=== PATIENT | female | born 1965 | race Caucasian/White ===

== ENCOUNTER → 2021-06-10 | Outpatient (CLI) | payer MEDICARE ==
[2021-06-10 16:39] LABS: BUN/CREATININE RATIO 20 (0-10)
== END ==
LOC: LAB 14:10
PROVIDERS: Family Medicine
DX: E11.40 Type 2 diabetes mellitus with diabetic neuropathy, unspecified (principal)
CPT/HCPCS: 36415; 80053; 83036

== ENCOUNTER → 2021-12-24 | Day surgery (SDC) | payer MEDICARE ==
[~2021-12-24] MED LIST: ABILIFY20 MG PO; ACCOLATE20 MG PO; ACYCLOVIR400 MG PO; ALBUTEROL2.5 MG/3 M INH; BENTYL 20MG TAB20 MG PO; BENZTROPINE MESY1 MG PO; BRIMONIDINE 0.110 ML EYEBOTH; CELEXA40 MG PO; CLEARLAX119 GM PO; CREON DR 36,001 EACH PO; CRESTOR10 MG PO; DULERA 200 MCG8.8 GM INH; HYDROCHLOROTHIA25 MG PO; LAMICTAL TAB 1100 MG PO; LIDOCAINE PO; LINZESS145 MCG PO; LOPRESSOR50 MG PO; LYRICA100 MG PO; MOMETASONE FURO60 ML; MYCOSTATIN100000 UTS PO; NOVOLOG MI100 UNIT/1 SC; PREVACID30 MG PO; RYBELSUS7 MG PO; SENNA S TABLET1 EACH PO; TYLENOL EXTRA500 M1 PO; VISTARIL 25 MG25 MG PO; ZANAFLEX4 M1 PO
== END | disposition home or self-care (01) ==
LOC: OR 07:12
PROVIDERS: Internal Medicine Gastroenterology
PROC: 0DBN8ZZ Excision of Sigmoid Colon, Via Natural or Artificial Opening Endoscopic (ICD-10-PCS; 2021-12-24)
PROC: 0DBP8ZZ Excision of Rectum, Via Natural or Artificial Opening Endoscopic (ICD-10-PCS; 2021-12-24)
PROC: 0DBM8ZZ Excision of Descending Colon, Via Natural or Artificial Opening Endoscopic (ICD-10-PCS; 2021-12-24)
PROC: 0DB38ZX Excision of Lower Esophagus, Via Natural or Artificial Opening Endoscopic, Diagnostic (ICD-10-PCS; 2021-12-24)
PROC: 0DB78ZX Excision of Stomach, Pylorus, Via Natural or Artificial Opening Endoscopic, Diagnostic (ICD-10-PCS; 2021-12-24)
PROC: 0DB68ZX Excision of Stomach, Via Natural or Artificial Opening Endoscopic, Diagnostic (ICD-10-PCS; 2021-12-24)
PROC: 0DBH8ZZ Excision of Cecum, Via Natural or Artificial Opening Endoscopic (ICD-10-PCS; principal; 2021-12-24 08:15)
PROC: 0DBL8ZZ Excision of Transverse Colon, Via Natural or Artificial Opening Endoscopic (ICD-10-PCS; 2021-12-24 08:15)
DX: Z12.11 Encounter for screening for malignant neoplasm of colon (principal); Z20.822 Contact with and (suspected) exposure to COVID-19; D12.0 Benign neoplasm of cecum; D12.3 Benign neoplasm of transverse colon; D12.4 Benign neoplasm of descending colon; D12.5 Benign neoplasm of sigmoid colon; K62.1 Rectal polyp; K31.89 Other diseases of stomach and duodenum; K21.00 Gastro-esophageal reflux disease with esophagitis, without bleeding; K64.1 Second degree hemorrhoids; K29.71 Gastritis, unspecified, with bleeding; K22.70 Barrett's esophagus without dysplasia; K58.9 Irritable bowel syndrome, unspecified; G47.33 Obstructive sleep apnea (adult) (pediatric); E11.9 Type 2 diabetes mellitus without complications; I10 Essential (primary) hypertension; E78.5 Hyperlipidemia, unspecified; J44.9 Chronic obstructive pulmonary disease, unspecified; F31.9 Bipolar disorder, unspecified; E66.01 Morbid (severe) obesity due to excess calories; Z68.41 Body mass index [BMI] 40.0-44.9, adult; Z88.0 Allergy status to penicillin; Z88.1 Allergy status to other antibiotic agents; Z88.2 Allergy status to sulfonamides; Z88.5 Allergy status to narcotic agent; Z88.6 Allergy status to analgesic agent; Z79.02 Long term (current) use of antithrombotics/antiplatelets; Z79.4 Long term (current) use of insulin; Z79.899 Other long term (current) drug therapy; Z86.010 Personal history of colon polyps; Z87.891 Personal history of nicotine dependence
CPT/HCPCS: 82962; J2001; J2704; J7040

== ENCOUNTER → 2022-07-05 | Outpatient (CLI) | payer MEDICARE | LOC: KOH-I 06-29 10:00 | DX: F17.210 Nicotine dependence, cigarettes, uncomplicated (principal) | CPT/HCPCS: 71271 ==